=== PATIENT | male | born 1975 | race African-American/Black ===

== ENCOUNTER 2019-08-21 01:51 | Emergency (ER) | payer OTHER ==
[~2019-08-21] VITALS: Ht 165.1 cm; Wt 61.2 kg
--- NOTE | 2019-08-21 02:19 | NUR ---
Dr. Lind at bedside for MSE.
[2019-08-21 02:41] LABS: BASOPHILS # (AUTO) 0.1 K/uL (0.0-8.0); EOSINOPHILS # (AUTO) 0.2 K/uL (0.0-0.7); EOSINOPHILS % (AUTO) 4.5 % (0.0-7.0); HEMATOCRIT 47.9 % (36.7-47.1); HEMOGLOBIN 15.8 g/dL (12.5-16.3); LYMPHOCYTES # (AUTO) 2.7 K/uL (20.0-40.0); LYMPHOCYTES % (AUTO) 51.5 % (20.5-51.5); MEAN CORPUSCULAR HEMOGLOBIN 29.8 uug (23.8-33.4); MEAN CORPUSCULAR HGB CONC 33 g/dL (32.5-36.3); MEAN CORPUSCULAR VOLUME 90.1 fL (73.0-96.2); MONOCYTES # (AUTO) 0.3 K/uL (2.0-10.0); MONOCYTES % (AUTO) 6.4 % (0.0-11.0); NEUTROPHILS # (AUTO) 1.9 K/uL (1.8-8.9); NEUTROPHILS % (AUTO) 36.6 % (38.5-71.5); PLATELET COUNT (AUTO) 173 K/uL (152-348); RED BLOOD CELL COUNT(AUTO) 5.32 MIL/uL (4.06-5.63); WHITE BLOOD COUNT (AUTO) 5.3 K/uL (3.6-10.2)
[2019-08-21 02:50] LABS: CREATININE 1.1 mg/dL (0.6-1.3); POTASSIUM 3.8 mmol/L (3.5-5.1)
[2019-08-21 02:55] LABS: MAGNESIUM 1.8 mg/dL (1.8-2.4)
[2019-08-21 02:56] LABS: BILIRUBIN,DIRECT 0.1 mg/dL (0.0-0.2); BILIRUBIN,TOTAL 0.3 mg/dL (0.2-1.0); TOTAL PROTEIN, SERUM 7.3 g/dL (6.4-8.2)
[2019-08-21] MEDS ORDERED: MAGNESIUM SULFATE/D5W 200 ML ONE (03:01)
[2019-08-21] MEDS: MAGNESIUM SULFATE/D5W 100 ML IV SCH ×2 (03:08→03:33)
--- NOTE | 2019-08-21 04:07 | NUR ---
Patient discharged to home in stable conditon. Written and verbal after care instructions given. Patient verbalizes understanding of instructions. Pt ambulated out of ER with steady gait, no acute signs of distress, VSS, all belongings taken, IV site discontinued.
[2019-08-21 04:08] VITALS: BP 112/72
== END 2019-08-21 04:08 | disposition home or self-care (01) ==
LOC: ER 01:58
DX: R20.2 Paresthesia of skin (principal)
CPT/HCPCS: 36415; 80048; 80076; 82550; 83735; 85025; 93005; 96365; 96366; 99284; J3475; A4663

== ENCOUNTER 2021-06-05 11:40 | Emergency (ER) | payer BC, OTHER ==
[~2021-06-05] VITALS: Ht 165.1 cm; Wt 61.2 kg
[2021-06-05] MEDS ORDERED: IBUP-1957 PO (11:58)
[2021-06-05] MEDS ORDERED: TRAZ-182 PO (11:58)
--- NOTE | 2021-06-05 12:00 | NUR ---
AT BEDSIDE FOR MSE.
[2021-06-05 12:15] LABS: HEMATOCRIT 50.2 % (36.7-47.1); MEAN CORPUSCULAR HEMOGLOBIN 29.4 uug (23.8-33.4); MEAN CORPUSCULAR VOLUME 87.5 fL (73.0-96.2); PLATELET COUNT (AUTO) 209 K/uL (152-348)
[2021-06-05] MEDS ORDERED: KETOROLAC TROMETHAMINE 30 MG INJ IVP ONE (12:15)
[2021-06-05] MEDS ORDERED: IV NORMAL SALINE 1000 ML BAG IV ONE (12:15)
[2021-06-05] MEDS ORDERED: IV NS 1000 ML 1,000 ML IV ONE (12:15)
[2021-06-05] MEDS ORDERED: MORPHINE SULFATE 2 MG/1 ML DISP.SYRIN IV ONE (12:15)
[2021-06-05 12:18] LABS: *BILIRUBIN,URIN NEGATIVE (NEGATIVE); *BLOOD, URINE 2+ (NEGATIVE); *CLARITY,URINE CLEAR (CLEAR); *COLOR,URINE YELLOW (YELLOW); *KETONES,URINE 2+ (NEGATIVE); *UROBILINOGEN,URINE 0.2 E.U./dl (NORMAL); LEUKOCYTE ESTERASE ,URINE NEGATIVE (NEGATIVE); NITRITE, URINE NEGATIVE (NEGATIVE); UGLUCOSE NEGATIVE (NEGATIVE)
[2021-06-05 12:19] LABS: POTASSIUM 3.9 mmol/L (3.5-5.1)
[2021-06-05] MEDS ORDERED: MORPHINE SULFATE 2 MG/1 ML DISP.SYRIN ONE (12:19)
[2021-06-05] MEDS ORDERED: KETOROLAC TROMETHAMINE 30 MG INJ ONE (12:19)
[2021-06-05 12:25] LABS: BILIRUBIN,DIRECT 0.1 mg/dL (0.0-0.2); BILIRUBIN,TOTAL 0.7 mg/dL (0.2-1.0); TOTAL PROTEIN, SERUM 7.3 g/dL (6.4-8.2)
--- NOTE | 2021-06-05 12:53 | NUR ---
Pt resting with NAD noted at this time.
[2021-06-05] MEDS ORDERED: IBUP-1955 PO (13:55)
[2021-06-05 14:00] VITALS: BP 118/74
--- NOTE | 2021-06-05 14:00 | NUR ---
Patient discharged to home in stable condition. Written and verbal after care instructions given. Patient verbalizes understanding of instructions. Stressed follow up or return to ER for worsening s/s.
--- NOTE | 2021-06-05 14:00 | NUR ---
IV removed. Catheter intact and site benign. Pressure and 4x4 gauze applied to site. No bleeding noted.
[2021-06-05 15:01] LABS: BACTERIA,URINE FEW /HPF (NONE SEEN); SQUAMOUS EPITHELIAL CELL,UR FEW /HPF (NONE SEEN); URINE AMORPHOUS URATE MANY /HPF; WBC,URINE 0-3 /HPF (0-3)
== END 2021-06-05 14:01 | disposition home or self-care (01) ==
LOC: ER 11:40
DX: R10.33 Periumbilical pain (principal); Z86.010 Personal history of colon polyps
CPT/HCPCS: 36415; 74176; 80048; 80076; 81001; 83690; 84484; 85025; 93005; 96361; 96374; 96375; 99285; J1885; J2270; 70030-TC; A4663; J7030

== ENCOUNTER 2023-10-14 19:49 | Emergency (ER) | payer SELFPAY ==
[~2023-10-14] VITALS: Ht 167.6 cm; Wt 61.2 kg
[~2023-10-14 19:49] MED LIST: IBUP-1955 PO; IBUP-1957 PO; TRAZ-182 PO
[2023-10-14 21:47] VITALS: BP 122/80; TEMP 98; O2SAT 99
== END 2023-10-14 21:48 | disposition home or self-care (01) ==
LOC: ER 19:52
DX: L29.9 Pruritus, unspecified (principal); J02.9 Acute pharyngitis, unspecified; Z79.899 Other long term (current) drug therapy
CPT/HCPCS: A4606; A4663